=== PATIENT | female | born 1980 | race African-American/Black ===

== ENCOUNTER 2016-05-04 13:35 | Emergency (ER) | payer OTHER ==
[~2016-05-04] VITALS: Ht 162.6 cm; Wt 88.5 kg
--- NOTE | ~2016-05-04 | EKG ---
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
[2016-05-04 13:59] LABS: URINE BILIRUBIN NEGATIVE (Negative); URINE BLOOD NEGATIVE (Negative); URINE COLOR YELLOW; URINE GLUCOSE-RANDOM* NEGATIVE (Negative); URINE KETONES NEGATIVE (Negative); URINE NITRITE NEGATIVE (Negative); URINE PROTEIN (DIPSTICK) NEGATIVE (Negative); URINE UROBILINOGEN 0.2 E.U./dl (0.2-1.0)
[2016-05-04 14:14] LABS: HEMOGLOBIN 13.5 gm/dL (12.0-15.0); MCH 25.9 pg (26.0-34.0); MCHC 32.9 % (28.0-37.0); MCV 78.9 fL (80.0-100.0); RBC 5.2 mil/uL (4.20-5.00); RDW 15.9 % (10.5-14.5); WBC 5.8 thou/uL (4.0-11.0)
[2016-05-04 14:18] LABS: CALCIUM 8.5 mg/dL (8.5-10.1); CREATININE 0.8 mg/dL (0.6-1.3); POTASSIUM 3.8 mmol/L (3.5-5.1)
[2016-05-04] MEDS ORDERED: ANTIVERT25 MG PO (15:35)
[2016-05-04 16:01] VITALS: BP 112/66
== END 2016-05-04 16:03 | disposition home or self-care (01) ==
LOC: ER 13:35
PROVIDERS: Physician Assistant
DX: R42 Dizziness and giddiness (principal); R51 Headache; F17.210 Nicotine dependence, cigarettes, uncomplicated

== ENCOUNTER 2017-08-27 21:54 | Emergency (ER) | payer OTHER ==
[~2017-08-27] VITALS: Ht 162.6 cm; Wt 106.1 kg
[~2017-08-27 21:54] MED LIST: ANTIVERT25 MG PO
[2017-08-27 22:22] VITALS: BP 130/81
[2017-08-27] MEDS ORDERED: VALIUM5 MG PO (22:35)
[2017-08-27] MEDS ORDERED: MOBIC15 MG PO (22:35)
== END 2017-08-27 22:45 | disposition home or self-care (01) ==
LOC: ER 21:54
DX: S46.911A Strain of unspecified muscle, fascia and tendon at shoulder and upper arm level, right arm, initial encounter (principal); R20.2 Paresthesia of skin; F17.210 Nicotine dependence, cigarettes, uncomplicated; X50.0XXA Overexertion from strenuous movement or load, initial encounter; Y93.89 Activity, other specified; Y92.89 Other specified places as the place of occurrence of the external cause; Y99.8 Other external cause status

== ENCOUNTER 2017-10-25 19:45 | Emergency (ER) | payer OTHER ==
[~2017-10-25] VITALS: Ht 162.6 cm; Wt 106.1 kg
[~2017-10-25 19:45] MED LIST changes: +MOBIC15 MG PO; +VALIUM5 MG PO
[2017-10-25] MEDS ORDERED: PAXIL10 MG PO (19:54)
[2017-10-25] MEDS ORDERED: IBUPROFEN 200200 M1 PO (19:54)
[2017-10-25] MEDS ORDERED: MOBIC7.5 MG PO (20:45)
[2017-10-25 21:08] VITALS: BP 130/68
== END 2017-10-25 20:45 | disposition home or self-care (01) ==
LOC: ER 19:45
DX: S93.601A Unspecified sprain of right foot, initial encounter (principal); Z87.891 Personal history of nicotine dependence; X50.3XXA Overexertion from repetitive movements, initial encounter; Y93.89 Activity, other specified; Y92.89 Other specified places as the place of occurrence of the external cause; Y99.8 Other external cause status

== ENCOUNTER 2018-02-06 03:44 | Emergency (ER) | payer OTHER ==
[~2018-02-06] VITALS: Ht 162.6 cm; Wt 106.1 kg
[~2018-02-06 03:44] MED LIST changes: +IBUPROFEN 200200 M1 PO; +MOBIC7.5 MG PO; +PAXIL10 MG PO
[2018-02-06 04:27] LABS: ABSOLUTE NEUTROPHILS 4.5 thou/uL (1.4-8.2); EOSINOPHILS 1.1 % (0.0-3.0); HEMATOCRIT 36.9 % (37.0-47.0); LYMPHOCYTES 29.5 % (24.0-44.0); MCH 24.5 pg (26.0-34.0); MCHC 32.6 g/dL (28.0-37.0); MCV 75.4 fL (80.0-100.0); MONOCYTES 10.3 % (1.0-8.0); PLATELET COUNT 302 thou/uL (150-400); POLYS 58.1 % (36.0-66.0); RDW 14.1 % (10.5-14.5); WBC 7.8 thou/uL (4.0-11.0)
[2018-02-06 04:35] LABS: ANION GAP 10 mmol/L (7-16); BUN 13 mg/dL (7-18); CALCIUM 8.4 mg/dL (8.5-10.1); CHLORIDE 107 mmol/L (98-107); CO2 23 mmol/L (21-32); CREATININE 0.7 mg/dL (0.6-1.0); GLUCOSE 101 mg/dL (74-106); POTASSIUM 3.5 mmol/L (3.5-5.1); SODIUM 140 mmol/L (136-145)
[2018-02-06 04:41] LABS: DIRECT BILIRUBIN < 0.1 mg/dL (<0.1-0.3); LIPASE 180 U/L (73-393); SGOT 13 U/L (15-37); SGPT 30 U/L (30-65); TOTAL BILIRUBIN 0.2 mg/dL (<0.1-1.0); TOTAL PROTEIN 6.8 g/dL (6.4-8.2)
[2018-02-06] MEDS ORDERED: CARAFATE 1 GM TA1 G1 PO (06:21)
[2018-02-06] MEDS ORDERED: BENTYL 20 MG TA20 M1 PO (06:21)
== END 2018-02-06 06:41 | disposition home or self-care (01) ==
LOC: ER 03:44
PROVIDERS: Emergency Medicine
DX: R10.9 Unspecified abdominal pain (principal); Z87.891 Personal history of nicotine dependence

== ENCOUNTER 2018-05-26 17:40 | Emergency (ER) | payer OTHER ==
[~2018-05-26] VITALS: Ht 162.6 cm; Wt 108.0 kg
[~2018-05-26 17:40] MED LIST changes: +BENTYL 20 MG TA20 M1 PO; +CARAFATE 1 GM TA1 G1 PO
[2018-05-26] MEDS ORDERED: ROBAXIN 750 MG750 M1 PO (18:19)
[2018-05-26] MEDS ORDERED: TYLENOL EXTRA500 MG PO (18:19)
[2018-05-26 18:30] VITALS: BP 132/76
== END 2018-05-26 18:30 | disposition home or self-care (01) ==
LOC: ER 17:40
DX: S39.012A Strain of muscle, fascia and tendon of lower back, initial encounter (principal); Z87.891 Personal history of nicotine dependence; W00.0XXA Fall on same level due to ice and snow, initial encounter; Y92.89 Other specified places as the place of occurrence of the external cause; Y93.89 Activity, other specified; Y99.8 Other external cause status

== ENCOUNTER 2018-07-16 19:14 | Emergency (ER) | payer OTHER ==
[~2018-07-16] VITALS: Ht 167.6 cm; Wt 124.7 kg
[~2018-07-16 19:14] MED LIST changes: +ROBAXIN 750 MG750 M1 PO; +TYLENOL EXTRA500 MG PO
[2018-07-16 19:55] LABS: ABSOLUTE NEUTROPHILS 3.5 thou/uL (1.4-8.2); BASOPHILS 1.4 % (0.0-2.0); EOSINOPHILS 0.9 % (0.0-3.0); HEMATOCRIT 37.8 % (37.0-47.0); HEMOGLOBIN 12.7 gm/dL (12.0-15.0); LYMPHOCYTES 27.8 % (24.0-44.0); MCH 25.6 pg (26.0-34.0); MCHC 33.5 g/dL (28.0-37.0); MCV 76.2 fL (80.0-100.0); MONOCYTES 6.3 % (1.0-8.0); PLATELET COUNT 254 thou/uL (150-400); POLYS 63.6 % (36.0-66.0); RBC 4.97 mil/uL (4.20-5.00); RDW 15.2 % (10.5-14.5); WBC 5.5 thou/uL (4.0-11.0)
[2018-07-16 19:59] LABS: CREATININE 0.8 mg/dL (0.6-1.0); POTASSIUM 3.6 mmol/L (3.5-5.1)
[2018-07-16 20:00] LABS: MAGNESIUM 1.8 mg/dL (1.8-2.4)
[2018-07-16 20:32] VITALS: BP 141/78
--- NOTE | 2018-07-17 09:26 | EKG ---
[place] [address] [address] [place] [address] ELECTROCARDIOGRAM REPORT Name: TRINO ROYAL [facility] [id number] ������������������ Admission: 07/16/18 ������������������ Attend Phys: Discharge: 07/16/18 ������������������ Date of : 84 Report #: [id number] ����������������������������������������������������������������� [id number] THIS REPORT FOR: //name// [facility] ED Test Date: 2018-07-16 Test Time: 19:30:25 Pat Name: TRINO ROYAL Department: Room: Gender: F Mop Maker: ISAÍAS : 1980 Requested By: Constantino Mcclelland Order Number: [id number] MD: Harvey Diaz Measurements Intervals [place] Rate: 69 P: 9 MN: 165 QRS: 15 QRSD: 96 T: 12 QT: 423 QTc: 454 Interpretive Statements Sinus rhythm No significant abnormality Compared to ECG 05/04/2016 13:53:24 No significant changes Electronically Signed On 07-17-2018 9:26:10 CDT by Harvey Diaz [email or web address] ��������������������������������������������� <ELECTRONICALLY SIGNED> ���������������������������������������� By: Harvey Diaz MD, [facility] ��������������������������������������������� 07/17/18 0926 1930 29 Harvey Diaz MD, FACC /EPI
== END 2018-07-16 20:32 | disposition home or self-care (01) ==
LOC: ER 19:14
PROVIDERS: Emergency Medicine
DX: R55 Syncope and collapse (principal)

== ENCOUNTER 2019-04-15 13:22 | Emergency (ER) | payer OTHER ==
[~2019-04-15] VITALS: Ht 162.6 cm; Wt 105.2 kg
[2019-04-15] MEDS ORDERED: VALIUM5 MG PO (15:44)
[2019-04-15] MEDS ORDERED: MOBIC15 MG PO (15:44)
[2019-04-15 16:00] VITALS: BP 129/84
== END 2019-04-15 16:00 | disposition home or self-care (01) ==
LOC: ER 13:22
DX: S46.012A Strain of muscle(s) and tendon(s) of the rotator cuff of left shoulder, initial encounter (principal); M43.6 Torticollis; Z87.891 Personal history of nicotine dependence; X58.XXXA Exposure to other specified factors, initial encounter; Y92.89 Other specified places as the place of occurrence of the external cause; Y93.89 Activity, other specified; Y99.8 Other external cause status

== ENCOUNTER 2020-06-03 19:48 | Emergency (ER) | payer OTHER ==
[~2020-06-03] VITALS: Ht 162.6 cm; Wt 95.3 kg
[2020-06-03] MEDS ORDERED: NOHOMEMEDICATIONS (20:10)
[2020-06-03] MEDS ORDERED: KEFLEX500 M1 PO (21:16)
[2020-06-03 22:33] VITALS: BP 130/80
== END 2020-06-03 22:33 | disposition home or self-care (01) ==
LOC: ER 19:48
DX: K04.7 Periapical abscess without sinus (principal); Z87.891 Personal history of nicotine dependence

== ENCOUNTER 2020-06-06 14:49 | Emergency (ER) | payer OTHER ==
[~2020-06-06] VITALS: Ht 162.6 cm; Wt 95.3 kg
[~2020-06-06 14:49] MED LIST changes: +KEFLEX500 M1 PO; +NOHOMEMEDICATIONS
[2020-06-06 14:52] VITALS: BP 154/91
[2020-06-06] MEDS ORDERED: MAGIC MOUTHWASH SWISH&SPIT (15:05)
[2020-06-06] MEDS ORDERED: PERIDEX 0.12%473 M1 SWISH&SPIT (15:06)
== END 2020-06-06 15:14 | disposition home or self-care (01) ==
LOC: ER 14:49
DX: K04.7 Periapical abscess without sinus (principal); Z87.891 Personal history of nicotine dependence; Z79.899 Other long term (current) drug therapy

== ENCOUNTER 2020-07-01 17:52 | Inpatient (IN) | payer OTHER ==
[~2020-07-01] VITALS: Ht 167.6 cm; Wt 104.8 kg
--- NOTE | ~2020-07-01 | EKG ---
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
--- NOTE | ~2020-07-01 | EKG ---
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
[~2020-07-01 17:52] MED LIST changes: +MAGIC MOUTHWASH SWISH&SPIT; +PERIDEX 0.12%473 M1 SWISH&SPIT
[2020-07-01 17:56] VITALS: BP 173/109
[2020-07-01 18:22] LABS: ABSOLUTE NEUTROPHILS 8.9 thou/uL (1.4-8.2); BASOPHILS 0.8 % (0.0-2.0); EOSINOPHILS 0.1 % (0.0-3.0); HEMATOCRIT 38.1 % (37.0-47.0); HEMOGLOBIN 12.9 gm/dL (12.0-15.0); LYMPHOCYTES 15.3 % (24.0-44.0); MCH 26.3 pg (26.0-34.0); MCHC 33.8 g/dL (28.0-37.0); MCV 77.7 fL (80.0-100.0); MONOCYTES 8.9 % (1.0-8.0); PLATELET COUNT 397 thou/uL (150-400); POLYS 74.9 % (36.0-66.0); RDW 14.5 % (10.5-14.5); WBC 11.9 thou/uL (4.0-11.0)
[2020-07-01 18:46] LABS: ALBUMIN 3.7 g/dL (3.4-5.0); CALCIUM 9.6 mg/dL (8.5-10.1); CREATININE 1.1 mg/dL (0.6-1.0); TOTAL BILIRUBIN 0.4 mg/dL (0.2-1.0); TOTAL PROTEIN 9.1 g/dL (6.4-8.2)
[2020-07-01 18:55] LABS: POTASSIUM 2.8 mmol/L (3.5-5.1)
[2020-07-01 20:32] LABS: AMP/METHAMP Negative (Negative); BARBITURATES Negative (Negative); BENZODIAZEPINES Negative (Negative); COCAINE Negative (Negative); METHADONE Negative (Negative); OPIATES POSITIVE (Negative); PCP Negative (Negative)
[2020-07-01 23:56] LABS: FOLIC ACID 9.1 ng/mL (8.6-58.9)
[2020-07-02] VITALS (7 sets, daily range): BP systolic 110–155; BP diastolic 60–100
--- NOTE | 2020-07-02 00:15 | NUR ---
FIRST ATTEMPT TO CALL REPORT AT THIS TIME. NO ANSWER
[2020-07-02 08:25] LABS: ABSOLUTE NEUTROPHILS 7.5 thou/uL (1.4-8.2); BASOPHILS 0.5 % (0.0-2.0); EOSINOPHILS 0.3 % (0.0-3.0); HEMATOCRIT 35.5 % (37.0-47.0); HEMOGLOBIN 11.3 gm/dL (12.0-15.0); LYMPHOCYTES 13.3 % (24.0-44.0); MCH 25.2 pg (26.0-34.0); MCHC 31.9 g/dL (28.0-37.0); MCV 79.1 fL (80.0-100.0); MONOCYTES 10.7 % (1.0-8.0); PLATELET COUNT 338 thou/uL (150-400); POLYS 75.2 % (36.0-66.0); RBC 4.49 mil/uL (4.20-5.00); RDW 14.8 % (10.5-14.5); WBC 9.9 thou/uL (4.0-11.0)
[2020-07-02 08:39] LABS: CALCIUM 8.8 mg/dL (8.5-10.1); CREATININE 0.7 mg/dL (0.6-1.0); MAGNESIUM 2.6 mg/dL (1.8-2.4); POTASSIUM 3.5 mmol/L (3.5-5.1)
--- NOTE | 2020-07-02 09:07 | NUR ---
PT ARRIVED FROM ER VIA W/C, PLACED IN ROOM 358. ADMISSION ASSESSMENTS COMPLETED. CT RESULTS NOTED. PT DENIES FEVER, SWEATS OR CHILLS. OBSERVABLE SWELLING NOTED TO THE LEFT SIDE OF PATIENTS FACE. LABS NOTED. CONTINUE TO MONITOR.
--- NOTE | 2020-07-02 19:47 | NUR ---
[facility] , PT IS A&OX3, PT'S L SIDE FACE'S PAIN AND EDEMA HAVE IMPROVED, PT IS CONTINUING IV ABX. PT GETS UP TO BATH ROOM BY HER SELF.
[2020-07-03 03:27] VITALS: BP 124/77
[2020-07-03 03:53] LABS: CALCIUM 9.4 mg/dL (8.5-10.1); CREATININE 0.7 mg/dL (0.6-1.0); MAGNESIUM 2.1 mg/dL (1.8-2.4)
[2020-07-03 03:57] LABS: POTASSIUM 4.6 mmol/L (3.5-5.1)
[2020-07-03 04:29] LABS: HEMATOCRIT 35.3 % (37.0-47.0); HEMOGLOBIN 11.5 gm/dL (12.0-15.0); MCH 25.8 pg (26.0-34.0); MCHC 32.5 g/dL (28.0-37.0); MCV 79.4 fL (80.0-100.0); RBC 4.44 mil/uL (4.20-5.00); RDW 14.7 % (10.5-14.5); WBC 7.8 thou/uL (4.0-11.0)
--- NOTE | 2020-07-03 06:17 | NUR ---
Pt. stated she slept some. C/O headache when she woke up not relieved by tylenol. Hydrocodone given with good relief. Afebrile. Tolerating room air well. Up ad juani in room with steady gait.
[2020-07-03 07:25] VITALS: BP 132/87
--- NOTE | 2020-07-03 11:23 | EKG ---
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: FSCHWALBE : 1980 Requested By: Raza Doan Order Number: [id number] MD: Michael Ribera Measurements Intervals [place] Rate: 153 P: 0 ME: 67 QRS: 53 QRSD: 83 T: 43 QT: 363 QTc: 580 Interpretive Statements Sinus tachycardia Consider right atrial enlargement Borderline ST depression, anterolateral leads Prolonged QT interval Baseline wander in lead(s) I,II,aVR,aVF Compared to ECG 07/01/2020 18:13:26 ST (T wave) deviation now present Aberrant conduction of supraventricular beat(s) no longer present Electronically Signed On 07-03-2020 11:23:53 CDT by Michael Ribera [email or web address] <ELECTRONICALLY SIGNED> By: Michael Ribera MD, FAC 07/03/20 1123 184 184 Michael Ribera MD, [facility] /EPI
--- NOTE | 2020-07-03 11:23 | EKG ---
[place] [address] [facility] [place] [address] ELECTROCARDIOGRAM REPORT Name: TRINO ROYAL Room #: 358-P ADM IN M.R.#: [id number] Admission: 07/01/20 Attend Phys: Cayla Khoury MD Discharge: Date of : 84 Report #: [id number] [facility] Test Date: 2020-07-01 Test Time: 18:13:26 Pat Name: TRINO ROYAL Department: Room: 358 Gender: F Audiology Assistant: JCHAICHAY : 1980 Requested By: Raza Doan Order Number: [id number] MD: Michael Ribera Measurements Intervals [place] Rate: 158 P: 83 RI: 148 QRS: 37 QRSD: 80 T: -46 QT: 296 QTc: 480 Interpretive Statements Sinus tachycardia/SVT Multiple premature complexes, vent & supraven Aberrant conduction of SV complex(es) Borderline repolarization abnormality Borderline prolonged QT interval Compared to ECG 07/01/2020 17:59:23 Aberrant conduction of supraventricular beat(s) now present Electronically Signed On 07-03-2020 11:23:41 CDT by Michael Ribera [email or web address] <ELECTRONICALLY SIGNED> By: Michael Ribera MD, FACC 07/03/20 1123 12 12 Michael Ribera MD, [facility] /EPI
--- NOTE | 2020-07-03 11:23 | EKG ---
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: JCHAICHAY : 1980 Requested By: Raza Doan Order Number: [id number] MD: Michael Ribera Measurements Intervals [place] Rate: 172 P: 74 MS: 55 QRS: 36 QRSD: 79 T: 47 QT: 312 QTc: 528 Interpretive Statements SVT LAE, consider biatrial enlargement Prolonged QT interval Compared to ECG 07/16/2018 19:30:25 Prolonged QT interval now present Sinus rhythm no longer present Electronically Signed On 07-03-2020 11:23:29 CDT by Michael Ribera [email or web address] <ELECTRONICALLY SIGNED> By: Michael Ribera MD, [facility] 07/03/20 1123 1759 1759 Michael Ribera MD, FACC /EPI
[2020-07-03 11:59] VITALS: BP 143/96
--- NOTE | 2020-07-03 16:29 | NUR ---
RN ASSUMED PT'S CARE AT 0700AM, PT IS A&OX3, PT IS CONTINUING IV ABX, PT'S L SIDE FACE PAIN AND EDEMA HAVE IMPROVED , PT'S VS ARE STABLE BY THIS TIME, PT IS RELAXING NOW.
[2020-07-03 17:57] VITALS: BP 125/79
[2020-07-03 19:24] VITALS: BP 139/85
[2020-07-04 05:00] VITALS: BP 126/75
--- NOTE | 2020-07-04 06:25 | NUR ---
Pt. stated she slept better last night. Denies any pain , left facial swelling decreasing. Afebrile. Up ad juani in room with steady gait. Making progress towards care plan goals.
[2020-07-04 07:27] VITALS: BP 159/91
[2020-07-04 09:46] LABS: HEMATOCRIT 36.4 % (37.0-47.0); HEMOGLOBIN 11.6 gm/dL (12.0-15.0); MCH 25.2 pg (26.0-34.0); MCHC 31.9 g/dL (28.0-37.0); MCV 79.2 fL (80.0-100.0); RBC 4.6 mil/uL (4.20-5.00); RDW 14.7 % (10.5-14.5); WBC 9.3 thou/uL (4.0-11.0)
[2020-07-04 11:22] VITALS: BP 135/83
--- NOTE | 2020-07-04 13:59 | 2DMMODE ---
[facility] [place] [address] 2 D/M-MODE ECHOCARDIOGRAM Name: TRINO ROYAL Room #: 358-P ADM IN M.R.#: [id number] Admission: 07/01/20 Attend Phys: Cayla Khoury MD Discharge: Date of : 84 Report #: [id number] THIS REPORT FOR: cc: FAM - No family physician/PCP FAM - No family physician/PCP Michael Ribera MD [facility] ~ APPROVED REPORT Study performed: 07/04/2020 12:13:04 EXAM: Comprehensive 2D, Doppler, and color-flow Echocardiogram Patient Location: Bedside Room #: 358 Status: routine BSA: 2.10 HR: 73 bpm BP: 135/83 mmHg Rhythm: NSR Other Information Study Quality: Good Indications Arrhythmia SVT 2D Dimensions RVDd: 24.56 mm IVSd: 12.15 (7-11mm) LVOT Diam: 19.56 (18-24mm) LVDd: 47.26 mm PWd: 8.41 (7-11mm) Ascending Ao: 30.22 (22-36mm) LVDs: 31.12 (25-40mm) Aortic Root: 28.44 mm IVC: 20.00 mm Volumes Left Atrial Volume (Systole) Single Plane 4CH: 51.43 mL Single Plane 2CH: 49.65 mL LA ESV Index: 26.00 mL/m2 Aortic Valve AoV Peak Ta.: 1.59 m/s AO Peak Gr.: 10.06 mmHg LVOT Max P.35 mmHg LVOT Max V: 1.04 m/s MAGO Vmax: 1.97 cm2 [facility] [address] [place] [address] 2 D/M-MODE ECHOCARDIOGRAM Name: GENNYTRINO Room #: 358-P [facility]#: [id number] Admission: 07/01/20 Attend Phys: Cayla Khoury MD Discharge: Date of : 84 Report #: [id number] Mitral Valve E/A Ratio: 1.3 MV Decel. Time: 257.22 ms MV E Max Ta.: 0.99 m/s MV A Ta.: 0.74 m/s MV PHT: 74.59 ms IVRT: 78.43 ms Pulmonary Valve PV Peak Ta.: 0.99 m/s PV Peak Gr.: 3.92 mmHg Pulmonary Vein P Vein S: 0.89 m/s P Vein D: 0.46 m/s P Vein S/D Ratio: 1.93 Left Ventricle The left ventricle is normal size. There is normal LV segmental wall motion. There is normal left ventricular wall thickness. Left ventricular systolic function is normal. The left ventricular ejection fraction is within the normal range. LVEF is 55-60%. The left ventricular diastolic function is normal. Right Ventricle The right ventricle is normal size. The right ventricular systolic function is normal. Atria The left atrium size is normal. The right atrium size is normal. Aortic Valve The aortic valve is normal in structure. No aortic regurgitation is present. There is no aortic valvular stenosis. Mitral Valve The mitral valve is normal in structure. There is no mitral valve regurgitation noted. No evidence of mitral valve stenosis. Tricuspid Valve The tricuspid valve is normal in structure. There is no tricuspid valve regurgitation noted. Pulmonic Valve The pulmonary valve is normal in structure. There is no pulmonic [facility] [place] [address] 2 D/M-MODE ECHOCARDIOGRAM Name: TRINO ROYAL Room #: 358-P [facility] IN M.R.#: [id number] Admission: 07/01/20 Attend Phys: Cayla Khoury MD Discharge: Date of : 84 Report #: [id number] valvular regurgitation. Great Vessels The aortic root is normal in size. IVC is normal in size and collapses >50% with inspiration. Pericardium There is no pericardial effusion. <Conclusion> Normal left ventricular size/wall thickness Ejection fraction 60% Normal right ventricular size Normal atrial size Color-flow Doppler study was performed of the aortic/mitral/tricuspid/pulmonary valve Normal aortic/mitral valve structure and function Normal aortic/mitral valve structure and function No evidence of tricuspid valve insufficiency Normal aortic root size No pericardial effusion <ELECTRONICALLY SIGNED> By: Michael Ribera MD, [facility] 07/04/20 1359 1359 1359 Michael Ribera MD, FACC /INF
[2020-07-04 15:20] VITALS: BP 130/72
--- NOTE | 2020-07-04 16:24 | NUR ---
INITIAL ASSESSMENT: Received consult. IRASEMA reviewed chart and spoke with nursing and attending physician. Pt was admitted from home due to facial cellulitis. Pt is currently on IV abx. Pt had recent tooth extraction. Discharge home is anticipated for tomorrow. Pt does not have health insurance. Med Assist to screen pt for financial assistance. IRASEMA met with pt at bedside. Introduced role of SW. Pt is alert/orientated x 4. Pt reports she lives at home with her . Prior to admission, pt was independent with ADLs. No use of DME. No hx of HH or post-acute placement. Pt does not have a PCP. Pt is interested in resources for safety net clinics. SW to provide pt with Health Resource guide and prescription discount card upon discharge. Pt will have transportation home. IRASEMA informed pt that Med Assist will be contacting her to assist with financial matters. Pt verbalized understanding. IRASEMA is following to assist as needed with discharge planning.
--- NOTE | 2020-07-04 19:06 | NUR ---
RN ASSUMED PT'S CARE AT 0700AM, PT IS A&OX3, PT IS CONTINUING IV ABX , PT'S L SIDE FACE 'S EADEMA HAS IMPROVED, PT DENIES PAIN BY THIS TIME, PT'S VS ARE STABLE BY THIS TIME.
[2020-07-04 19:29] VITALS: BP 147/88
[2020-07-05 03:59] VITALS: BP 135/70
--- NOTE | 2020-07-05 05:37 | NUR ---
Pt. stated she slept well during the night. Denies any pain. Left facial swelling has gone down wuite a bit per pt. Tolerating room air well. Afebrile. Progressing towards discharge goals.
[2020-07-05 07:35] VITALS: BP 156/96
[2020-07-05] MEDS ORDERED: CARDIZEM CD120 MG PO (08:44)
[2020-07-05] MEDS ORDERED: CLEOCIN HCL300 MG PO (08:44)
[2020-07-05] MEDS ORDERED: PREDNISONE 20 M20 M1 PO (08:44)
[2020-07-05 10:09] VITALS: BP 156/96
--- NOTE | 2020-07-05 15:03 | NUR ---
DISCHARGE NOTE: SW reviewed chart and spoke with nursing and attending physician. Pt is medically stable for discharge home today. Med Assist screened pt and pt does not qualify for Medicaid. Pt was discharged prior to SW visit to provide info for safety net clinics. Case closed.
== END 2020-07-05 12:16 | disposition home or self-care (01) | DRG 871 ==
LOC: ER 17:52 → EROBS 21:37 → 3W 07-02 00:44
PROVIDERS: Emergency Medicine; Internal Medicine; Nurse Practitioner; ADMIT Internal Medicine; ATTEND Internal Medicine
DX: A41.89 Other specified sepsis (principal); N17.0 Acute kidney failure with tubular necrosis; I47.1 Supraventricular tachycardia; L03.211 Cellulitis of face; R65.20 Severe sepsis without septic shock; F41.9 Anxiety disorder, unspecified; E87.6 Hypokalemia; A46 Erysipelas; F12.20 Cannabis dependence, uncomplicated; K04.7 Periapical abscess without sinus; Z79.899 Other long term (current) drug therapy; Z87.891 Personal history of nicotine dependence; Z71.51 Drug abuse counseling and surveillance of drug abuser
CPT/HCPCS: 10879

== ENCOUNTER 2020-09-03 12:19 | Emergency (ER) | payer OTHER ==
[~2020-09-03] VITALS: Ht 162.6 cm; Wt 111.1 kg
[~2020-09-03 12:19] MED LIST changes: +CARDIZEM CD120 MG PO; +CLEOCIN HCL300 MG PO; +PREDNISONE 20 M20 M1 PO
[2020-09-03 12:50] LABS: URINE BILIRUBIN NEGATIVE (Negative); URINE BLOOD TRACE (Negative); URINE CLARITY SL CLOUDY; URINE COLOR YELLOW; URINE GLUCOSE-RANDOM* NEGATIVE (Negative); URINE KETONES NEGATIVE (Negative); URINE LEUKOCYTES-REFLEX 1+ (Negative); URINE NITRITE-REFLEX NEGATIVE (Negative); URINE PROTEIN (DIPSTICK) NEGATIVE (Negative); URINE SPECIFIC GRAVITY <= 1.005 (1.005-1.035); URINE UROBILINOGEN 0.2 E.U./dl (0.2-1.0)
[2020-09-03 12:57] LABS: SQUAMOUS >10 Many /LPF (0-3)
[2020-09-03 12:58] LABS: BACTERIA-REFLEX 1-9 Few /HPF (None Seen); CASTS None Seen /LPF (None Seen); CRYSTALS None Seen /LPF (None Seen); URINE RBC 1-2 Rare /HPF (NONE SEEN); URINE WBC-REFLEX 0-5 Rare /HPF (0-5)
[2020-09-03 13:12] LABS: ABSOLUTE NEUTROPHILS 6.7 thou/uL (1.4-8.2); BASOPHILS 0.5 % (0.0-2.0); EOSINOPHILS 0.4 % (0.0-3.0); HEMATOCRIT 37.6 % (37.0-47.0); HEMOGLOBIN 12.1 gm/dL (12.0-15.0); LYMPHOCYTES 15.5 % (24.0-44.0); MCH 25.5 pg (26.0-34.0); MCHC 32.2 g/dL (28.0-37.0); MCV 79.1 fL (80.0-100.0); MONOCYTES 9.1 % (1.0-8.0); PLATELET COUNT 288 thou/uL (150-400); POLYS 74.5 % (36.0-66.0); RBC 4.76 mil/uL (4.20-5.00); RDW 16.3 % (10.5-14.5)
[2020-09-03 13:19] LABS: ANION GAP 10 mmol/L (7-16); BUN 8 mg/dL (7-18); CALCIUM 8.8 mg/dL (8.5-10.1); CHLORIDE 104 mmol/L (98-107); CO2 25 mmol/L (21-32); CREATININE 0.7 mg/dL (0.6-1.0); GLUCOSE 101 mg/dL (74-106); POTASSIUM 3.8 mmol/L (3.5-5.1); SODIUM 139 mmol/L (136-145)
[2020-09-03 13:26] LABS: ALBUMIN 3.3 g/dL (3.4-5.0); DIRECT BILIRUBIN < 0.1 mg/dL (<0.1-0.2); LIPASE 80 U/L (73-393); SGOT 17 U/L (15-37); SGPT 25 U/L (14-59); TOTAL BILIRUBIN 0.2 mg/dL (0.2-1.0)
[2020-09-03] MEDS ORDERED: ONDANSETRON HCL4 M2 PO (15:28)
[2020-09-03 15:38] VITALS: BP 120/69
== END 2020-09-03 15:39 | disposition home or self-care (01) ==
LOC: ER 12:19
PROVIDERS: Nurse Practitioner
DX: K59.00 Constipation, unspecified (principal); R11.2 Nausea with vomiting, unspecified; Z87.891 Personal history of nicotine dependence; Z79.899 Other long term (current) drug therapy

== ENCOUNTER 2020-12-12 16:46 | Emergency (ER) | payer OTHER ==
[~2020-12-12] VITALS: Ht 162.6 cm; Wt 111.1 kg
[~2020-12-12 16:46] MED LIST changes: +ONDANSETRON HCL4 M2 PO
[2020-12-12 17:01] LABS: URINE BILIRUBIN NEGATIVE (Negative); URINE BLOOD 1+ (Negative); URINE COLOR YELLOW; URINE GLUCOSE-RANDOM* NEGATIVE (Negative); URINE KETONES NEGATIVE (Negative); URINE PROTEIN (DIPSTICK) NEGATIVE (Negative); URINE UROBILINOGEN 0.2 E.U./dl (0.2-1.0)
[2020-12-12 17:03] LABS: URINE CLARITY CLOUDY; URINE LEUKOCYTES-REFLEX 3+ (Negative); URINE NITRITE-REFLEX POSITIVE (Negative)
[2020-12-12 17:12] LABS: SQUAMOUS 0-3 Few /LPF (0-3); URINE WBC-REFLEX >25 Many /HPF (0-5)
[2020-12-12 17:14] LABS: BACTERIA-REFLEX >30 Many /HPF (None Seen); CASTS None Seen /LPF (None Seen); CRYSTALS None Seen /LPF (None Seen); URINE RBC 3-10 Few /HPF (NONE SEEN)
[2020-12-12] MEDS ORDERED: NORCO7.5 PO (17:31)
[2020-12-12] MEDS ORDERED: BACTRIM DS TAB1 EACH PO (17:31)
[2020-12-12 18:12] VITALS: BP 138/82
== END 2020-12-12 18:12 | disposition home or self-care (01) ==
LOC: ER 16:46
PROVIDERS: Nurse Practitioner
DX: L02.412 Cutaneous abscess of left axilla (principal); N39.0 Urinary tract infection, site not specified; Z87.891 Personal history of nicotine dependence

== ENCOUNTER 2020-12-15 22:13 | Emergency (ER) | payer OTHER ==
[~2020-12-15] VITALS: Ht 162.6 cm; Wt 111.1 kg
[~2020-12-15 22:13] MED LIST changes: +BACTRIM DS TAB1 EACH PO; +NORCO7.5 PO
[2020-12-15 22:41] VITALS: BP 144/86
== END 2020-12-15 22:41 | disposition home or self-care (01) ==
LOC: ER 22:13
DX: L02.412 Cutaneous abscess of left axilla (principal); Z48.00 Encounter for change or removal of nonsurgical wound dressing; F12.90 Cannabis use, unspecified, uncomplicated; Z98.890 Other specified postprocedural states; Z86.16 Personal history of COVID-19; Z79.899 Other long term (current) drug therapy; Z79.891 Long term (current) use of opiate analgesic; Z87.891 Personal history of nicotine dependence

== ENCOUNTER 2020-12-22 10:22 | Emergency (ER) | payer OTHER ==
[~2020-12-22] VITALS: Ht 162.6 cm; Wt 111.1 kg
--- NOTE | ~2020-12-22 | EMS ---
[address] [address] EMS Patient Care Report Name: TRINO ROYAL Room #: PRE M.R.#: [id number] Admission: Attend Phys: Discharge: Date of : 84 Report #: [id number] THIS REPORT FOR: //name// Report Transmitted: 12/22/2020 10:01 EMS Care Summary [facility] MED-ACT Incident [id number] @ 12/22/2020 09:46 Incident Location [address] [place] [address] Patient TRINO ROYAL Female, 40 Years 1980 Patient Address [address] [place] [address] Patient History Anxiety Disorder (Panic Attacks), Patient Allergies No known allergies, Patient Medications None Reported, Chief Complaint Chest tightness & dizziness Disposition Transported No Lights/[place] Dispatch Reason Chest Pain (Non-Traumatic) Transported To [facility] Narrative [id number] responded emergent to [facility] Nursing for an employee complaining of chest pain. [id number] arrived on scene and was greeted by staff who led EMS to the nurses office where pt was waiting. Pt was found sitting upright in a chair. Pt was awake, alert and holding her chest. 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 She states she told another nurse who then had her sit down and drink some water. She states she then got back up and began to have chest tightness across the front of her chest and numbness in her left arm. Pt states she has a hx of panic attacks but she normally doesn't get chest pain or arm numbness with her panic attacks. Pt states she was then given ASA by staff and 911 was called. Pt states in July 2020 she went to the hospital for a high heart rate and was given medication to slow her heart rate and today's symptoms are similar to that episode. Pt reports still feeling dizzy. Pt denies nausea, headache, fever or recent illness. Pt states she feels short of breath "because of my chest being so tight." Pt rates the chest tightness a 7/10. Pt is offered pain medication and she declines. Pt denies any recent fall or trauma. Pt is able to stand, pivot and lay on cot in position of comfort. Pt secured to cot via 5 point seatbelt and moved to ambulance. IV obtained as charted. Transport begins. During transport pt states her arm is no longer numb but the chest tightness is still present as well as the dizziness. Pt to room 3, pt moves from cot to bed on her own and report given to RN. Initial Vitals @09:54P: 81, @09:53P: 86, @10:14P: 78,R: 18,BP: 143/66,SpO2: 100, @10:01P: 81,R: 18,BP: 132/79,SpO2: 100, @09:56P: 90,R: 18,BP: 144/99,GCS: 15,SpO2: 98,Revised Trauma: 12, @09:52P: 85,R: 18,BP: 127/87,Pain: 7/10,GCS: 15,Temp: 98.7F,SpO2: 100,Revised Trauma: 12, Impression Chest Pain / Discomfort Procedures @10:03Saline Lock 10cc (20 ga) Site: Antecubital-RightResponse: UnchangedSucceeded@10:04Surgical Mask on PatientResponse: Unchanged@09:53ALS AssessmentResponse: UnchangedSucceeded@PTAAspirin - 324 Milligrams (mg) - OralResponse: Unchanged@10:13Fentanyl - - @09:5412-Lead ECG Timeline [place]ER,Aspirin - 324 Milligrams (mg) - Oral,Response: Unchanged 09:44,Call Received [address] [address] EMS Patient Care Report Name: ROYALTRINO Room #: PRE M.R.#: [id number] Admission: Attend Phys: Discharge: Date of : 84 Report #: [id number] 09:44,Psap Call 09:46,Dispatched 09:46,En Route 09:49,On Scene 09:51,At Patient 09:52,BP: 127/87 M,PULSE: 85,RR: 18 R,SPO2: 100 Ox,ETCO2: ,BG: ,PAIN: 7,GCS: 15, 09:53,ALS Assessment,Response: UnchangedSucceeded, 09:53,BP: / M,PULSE: 86,RR: R,SPO2: Ox,ETCO2: ,BG: ,PAIN: ,GCS: , 09:54,12-Lead ECG, 09:54,BP: / M,PULSE: 81,RR: R,SPO2: Ox,ETCO2: ,BG: ,PAIN: ,GCS: , 09:56,BP: 144/99 M,PULSE: 90,RR: 18 R,SPO2: 98 Ox,ETCO2: ,BG: ,PAIN: ,GCS: 15, 10:01,BP: 132/79 M,PULSE: 81,RR: 18 R,SPO2: 100 Ox,ETCO2: ,BG: ,PAIN: ,GCS: , 10:03,Saline Lock 10cc 20 ga Site: Antecubital-Right,Response: UnchangedSucceeded, 10:04,Surgical Mask on Patient,Response: Unchanged 10:07,Depart Scene 10:13,Fentanyl - - , 10:14,BP: 143/66 M,PULSE: 78,RR: 18 R,SPO2: 100 Ox,ETCO2: ,BG: ,PAIN: ,GCS: , 10:18,At Destination 10:53,Call Closed Disclaimer v1.1 Copyright 2020 [employer] This EMS Care Summary contains data elements from the applicable legal record (which may be displayed differently). It is designed to provide pertinent information for the following purposes: continuity of care, clinical quality, and state data reporting. The complete legal record is available to ED staff and administrators of the receiving hospital in [employer]'s Patient Tracker. All data is provided "as is."
[2020-12-22 10:39] LABS: ABSOLUTE NEUTROPHILS 4.6 thou/uL (1.4-8.2); BASOPHILS 0.9 % (0.0-2.0); EOSINOPHILS 0.6 % (0.0-3.0); HEMATOCRIT 42.2 % (37.0-47.0); HEMOGLOBIN 13.3 gm/dL (12.0-15.0); LYMPHOCYTES 23.1 % (24.0-44.0); MCHC 31.6 g/dL (28.0-37.0); MCV 75.9 fL (80.0-100.0); MONOCYTES 6.8 % (1.0-8.0); PLATELET COUNT 318 thou/uL (150-400); POLYS 68.6 % (36.0-66.0); RBC 5.56 mil/uL (4.20-5.00); RDW 16.2 % (10.5-14.5); WBC 6.7 thou/uL (4.0-11.0)
[2020-12-22 10:58] LABS: ANION GAP 13 mmol/L (7-16); BUN 11 mg/dL (7-18); CALCIUM 8.8 mg/dL (8.5-10.1); CHLORIDE 104 mmol/L (98-107); CO2 20 mmol/L (21-32); GLUCOSE 98 mg/dL (74-106); POTASSIUM 4.1 mmol/L (3.5-5.1); SODIUM 137 mmol/L (136-145)
[2020-12-22 11:08] LABS: ALBUMIN 3.3 g/dL (3.4-5.0); SGOT 18 U/L (15-37); SGPT 21 U/L (14-59); TOTAL BILIRUBIN 0.2 mg/dL (0.2-1.0); TOTAL PROTEIN 6.9 g/dL (6.4-8.2)
--- NOTE | 2020-12-22 11:50 | EKG ---
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 : 1980 Requested By: Alfonzo Sanchez Order Number: [id number] MD: Michael Ribera Measurements Intervals [place] Rate: 77 P: 14 VT: 160 QRS: 30 QRSD: 82 T: 32 QT: 402 QTc: 455 Interpretive Statements Sinus rhythm Compared to ECG 07/01/2020 18:46:58 Sinus tachycardia no longer present ST (T wave) deviation no longer present Prolonged QT interval no longer present Electronically Signed On 12-22-2020 11:50:32 CDT by Michael Ribera [email or web address] <ELECTRONICALLY SIGNED> By: Michael Ribera MD, [facility] 12/22/20 1150 1024 [facility] Michael Ribera MD, FACC /EPI
[2020-12-22 13:14] VITALS: BP 133/81
--- NOTE | 2020-12-23 07:22 | EKG ---
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
== END 2020-12-22 13:14 | disposition home or self-care (01) ==
LOC: ER 10:22
PROVIDERS: Student in an Organized Health Care Education/Training Program
DX: R07.89 Other chest pain (principal); R06.02 Shortness of breath; R11.0 Nausea; F12.90 Cannabis use, unspecified, uncomplicated; F17.210 Nicotine dependence, cigarettes, uncomplicated; Z86.16 Personal history of COVID-19